=== PATIENT | female | born 1965 | race Caucasian/White ===

== ENCOUNTER → 2016-11-24 | Outpatient (CLI) | payer OTHER ==
[~2016-11-24] MED LIST: CALC-699 PO; FIBER; GLUC1CAP9 PO; LEVO150T68 PO; NIACIN
== END ==
LOC: WC.BC 13:43
PROVIDERS: ATTEND Family Medicine
DX: Z03.89 Encounter for observation for other suspected diseases and conditions ruled out (principal); R59.0 Localized enlarged lymph nodes
CPT/HCPCS: 76882; 77062; G0204